=== PATIENT | female | born 1960 | race Caucasian/White ===

== ENCOUNTER 2022-06-09 20:19 | Emergency (ER) | payer OTHER, SELFPAY ==
--- NOTE | ~2022-06-09 | XR_ITS ---
EXAMINATION: XR CHEST CLINICAL INFORMATION: Chest pain COMPARISON: Chest x-ray 03/12/2019 TECHNIQUE: 2 views of the chest were obtained. FINDINGS: Lungs are clear. No pulmonary vascular congestion. There is no pleural effusion. The heart size is normal. The cardiac and mediastinal contours are normal.. There are multilevel degenerative changes of dorsal spine. XR/XR chest 2V IMPRESSION: Unremarkable examination.
--- NOTE | 2022-06-09 20:24 | ECG_ITS ---
Test Reason : SOB Blood Pressure : / mmHG Vent. Rate : 075 BPM Atrial Rate : 075 BPM P-R Int : 158 ms QRS Dur : 068 ms QT Int : 378 ms P-R-T Axes : 050 037 043 degrees QTc Int : 422 ms Normal sinus rhythm Normal ECG No previous ECGs available Referred By: Generic ED Physician Electronically Signed By:LOLA OTERO MD
[2022-06-09 20:32] VITALS: BP 157/82; PULSE 76; RESP 20; TEMP 36.6; O2SAT 95; BMI 42.9
--- NOTE | 2022-06-09 20:37 | ED_ITS ---
HPI - General Adult General Chief complaint: Dyspnea Stated complaint: sob,congested cough,dizziness Time Seen by Provider: 06/09/22 22:38 Related Data Allergies Allergy/AdvReac Type Severity Reaction Status Date / Time No Known Allergies Allergy Verified 06/09/22 20:34 [No Known Allergies*] [facility] Social History Social History Advance Directives: No Advance Directives Information Provided: Yes Physical Exam ED Vital Signs: Vital Signs - 24 hr 06/09/22 20:32 Temperature 97.8 F Pulse Rate 76 Respiratory Rate 20 Blood Pressure 157/82 H Pulse Oximetry 95 Oxygen Delivery Method Room Air BMI result Body Mass Index 42.9 Course Course Course Narrative: 61-year-old female with past medical history significant for COPD presents for evaluation of cough, shortness of breath and chest tightness. Exam she has diffuse expiratory wheeze and decreased air movement. Vital signs are however stable. Plan for labs, EKG, chest x-ray and COVID swab. Medical Decision Making Lab Data 06/09/22 20:44 06/09/22 20:44 Labs: Lab Results 06/09/22 06/09/22 06/09/22 Range/Units 20:44 20:44 20:44 WBC 10.5 (4.8-10.8) X10*3/uL RBC 5.01 (4.20-5.50) X10*6/uL Hgb 14.1 (12.0-16.0) g/dl Hct 43.9 (37.0-47.0) % MCV 87.6 (80.0-98.0) fL MCH 28.1 (27.0-33.0) pg MCHC 32.1 (31.0-35.0) g/dl RDW 14.6 (11.0-16.0) % Plt Count 289 (160-400) X10*3/uL MPV 9.4 (9.4-12.3) fL Immature Gran % (Auto) 0.6 H (0.0-0.4) % Neut % (Auto) 63.8 (45-73) % Lymph % (Auto) 23.7 (20-40) % [place] % (Auto) 7.9 (2-11) % Eos % (Auto) 3.3 (0-4) % Baso % (Auto) 0.7 (0-2) % Lymph # (Auto) 2.5 (1.2-4.9) X10*3/uL [place] # (Auto) 0.8 (0.1-1.2) X10*3/uL Eos # (Auto) 0.4 (0.0-0.4) X10*3/uL Baso # (Auto) 0.1 (0.0-0.2) X10*3/uL Abs Immat Gran (auto) 0.06 H (0.00-0.03) X10*3/uL Absolute Neuts (auto) 6.7 (2.0-8.3) x10*3/uL Absolute Nucleated RBC 0.000 (0.0-0.012) X10*3/uL Nucleated RBC % (auto) 0.0 (0.0-0.2) /100WBC Sodium 143 (135-145) mmol/L Potassium 4.7 (3.3-5.1) mmol/L Chloride 108 (96-108) mmol/L Carbon Dioxide 26 (22-29) mmol/L Anion Gap 14 (12-20) BUN 12 (9-16) mg/dL Creatinine 1.14 (0.5-1.4) mg/dL Estim Creat Clear Calc 65.5 Estimated GFR 49 Random Glucose 104 (60-115) mg/dL Calcium 9.0 (8.4-10.2) mg/dL Magnesium 2.0 (1.6-2.6) mg/dL Troponin I High Sens < 3.5 (<3.5-17.0) ng/L B-Natriuretic Peptide (<100) pg/mL COVID-19 (CASE) (Negative) COVID-19 Clin Com 06/09/22 06/09/22 Range/Units 20:44 20:44 WBC (4.8-10.8) X10*3/uL RBC (4.20-5.50) X10*6/uL Hgb (12.0-16.0) g/dl Hct (37.0-47.0) % MCV (80.0-98.0) fL MCH (27.0-33.0) pg MCHC (31.0-35.0) g/dl RDW (11.0-16.0) % Plt Count (160-400) X10*3/uL MPV (9.4-12.3) fL Immature Gran % (Auto) (0.0-0.4) % Neut % (Auto) (45-73) % Lymph % (Auto) (20-40) % [place] % (Auto) (2-11) % Eos % (Auto) (0-4) % Baso % (Auto) (0-2) % Lymph # (Auto) (1.2-4.9) X10*3/uL [place] # (Auto) (0.1-1.2) X10*3/uL Eos # (Auto) (0.0-0.4) X10*3/uL Baso # (Auto) (0.0-0.2) X10*3/uL Abs Immat Gran (auto) (0.00-0.03) X10*3/uL Absolute Neuts (auto) (2.0-8.3) x10*3/uL Absolute Nucleated RBC (0.0-0.012) X10*3/uL Nucleated RBC % (auto) (0.0-0.2) /100WBC Sodium (135-145) mmol/L Potassium (3.3-5.1) mmol/L Chloride (96-108) mmol/L Carbon Dioxide (22-29) mmol/L Anion Gap (12-20) BUN (9-16) mg/dL Creatinine (0.5-1.4) mg/dL Estim Creat Clear Calc Estimated GFR Random Glucose (60-115) mg/dL Calcium (8.4-10.2) mg/dL Magnesium (1.6-2.6) mg/dL Troponin I High Sens (<3.5-17.0) ng/L B-Natriuretic Peptide 16 (<100) pg/mL COVID-19 (CASE) Negative (Negative) COVID-19 Clin Com See Note
[2022-06-09 20:49] LABS: MANUAL DIFF FLAG NO
[2022-06-09 20:56] LABS: Basophils Absolute Auto 0.1 X10*3/uL (0.0-0.2); Basophils Percent Auto 0.7 % (0-2); Eosinophils Absolute Auto 0.4 X10*3/uL (0.0-0.4); Eosinophils Percent Auto 3.3 % (0-4); Hematocrit 43.9 % (37.0-47.0); Hemoglobin 14.1 g/dl (12.0-16.0); Imm Gran Abs Auto 0.06 X10*3/uL (0.00-0.03); Imm Gran Pct Auto 0.6 % (0.0-0.4); Lymphocytes Absolute Auto 2.5 X10*3/uL (1.2-4.9); Lymphocytes Percent Auto 23.7 % (20-40); Mean Corpuscular HGB Conc 32.1 g/dl (31.0-35.0); Mean Corpuscular Hemoglobin 28.1 pg (27.0-33.0); Mean Corpuscular Volume 87.6 fL (80.0-98.0); Mean Platelet Volume 9.4 fL (9.4-12.3); Monocytes Absolute Auto 0.8 X10*3/uL (0.1-1.2); Monocytes Percent Auto 7.9 % (2-11); Neutrophils Absolute Auto 6.7 x10*3/uL (2.0-8.3); Neutrophils Percent Auto 63.8 % (45-73); Platelet Count 289 X10*3/uL (160-400); Red Blood Count 5.01 X10*6/uL (4.20-5.50); Red Cell Distribution Width 14.6 % (11.0-16.0); White Blood Count 10.5 X10*3/uL (4.8-10.8)
[2022-06-09 21:07] LABS: COVID-19 Test Negative (Negative); IDNOW Serial# 08D9AD1C
[2022-06-09 21:13] LABS: Anion Gap 14 (12-20); Blood Urea Nitrogen 12 mg/dL (9-16); Carbon Dioxide 26 mmol/L (22-29); Chloride 108 mmol/L (96-108); Creatinine Clr Calc Pharmacy 65.5; Estimated Glomerular Filt Rate 49; Glucose Random 104 mg/dL (60-115); Potassium 4.7 mmol/L (3.3-5.1); Sodium 143 mmol/L (135-145)
[2022-06-09 21:17] LABS: B Type Natriuretic Peptide 16 pg/mL (<100)
[2022-06-09 21:25] LABS: Troponin-I High Sensitivity < 3.5 ng/L (<3.5-17.0)
--- NOTE | 2022-06-09 23:01 | ED_ITS ---
HPI - SOB/Dyspnea General Chief Complaint: Dyspnea Stated Complaint: sob,congested cough,dizziness Time Seen by Provider: 06/09/22 22:38 Source: patient Mode of arrival: ambulatory Limitations: no limitations History of Present Illness HPI Narrative: 61-year-old female came in for evaluation of SOB, congestion, productive cough with clear sputum. Patient is a former smoker with history of COPD/emphysema patient is not using supplemental oxygen. No chest pain, no fever, no chills, lower extremities swelling or tenderness. Symptoms started 3-4 days ago with sore throat that is improved now. Related Data Previous Rx's Medication Instructions Recorded albuterol sulfate 2.5 mg/3 mL 2.5 mg (3 mL) inhalation QID PRN 06/10/22 (0.083 %) solution for nebulization shortness of breath or wheezing #90 mL albuterol sulfate 90 mcg/actuation 2 puff inhalation Q6H PRN 06/10/22 aerosol inhaler shortness of breath or wheezing #8.5 grams azithromycin 250 mg tablet See Rx Instructions PO .COMPLEX #6 06/10/22 (Zithromax Z-Charles) tabs prednisone 20 mg tablet 20 mg PO BID #10 tabs 06/10/22 Allergies Allergy/AdvReac Type Severity Reaction Status Date / Time No Known Allergies Allergy Verified 06/09/22 20:34 [No Known Allergies*] Review of Systems Review of Systems: All other systems are reviewed and are negative Constitutional: Reports as per HPI and Reports no additional constitutional complaints Eyes: Reports as per HPI and Reports no additional eye complaints Reports system reviewed and no additional complaints, except as documented Cardiovascular: Reports as per HPI and Reports no additional cardiovascular complaints Respiratory: Reports as per HPI and Reports no additional respiratory complaints Gastrointestinal: Reports as per HPI and Reports no additional gastrointestinal complaints Genitourinary: Reports no additional female genitourinary complaints Musculoskeletal: Reports no additional musculoskeletal complaints Skin/Breast: Reports system reviewed and no additional complaints, except as docu Psychiatric: Reports no additional psychiatric complaints Endocrine: Reports no additional endocrine complaints Hematologic/Lymphatic: Reports no additional hematologic/lymphatic complaints Allergic/Immunologic: Reports no additional allergic/immunologic complaints Reports system reviewed and no additional complaints, except as documented and Reports Abnormal speech present PMF Social History Social History Advance Directives: No Advance Directives Information Provided: Yes Physical Exam Vital Signs: Vital Signs: Last Vital Signs Temp 97.8 F 06/09/22 20:32 Pulse 61 06/09/22 23:20 Resp 16 06/09/22 23:20 BP 180/82 H 06/09/22 23:20 Pulse Ox 94 06/09/22 23:20 O2 Del Method Room Air 06/09/22 20:32 BMI result Body Mass Index 42.9 Vital signs have been reviewed as appeared to be correct. Blood pressure normal. Heart rate normal. Respiration rate normal. Temperature normal. Oxygen saturation normal. Appearance: Alert. Oriented X3. No acute distress. Head: Normal external exam. Normocephalic. Atraumatic. No Patel signs noted. No raccoon eyes noted Eyes: PERRLA. EOMI. Conjunctiva and sclera normal. Eyelids normal. ENT: TM's Normal. Pharynx normal. Uvula midline. Moist mucous membranes. No trismus noted. No drooling noted. No muffled voice noted. Neck: Normal inspection. Neck supple. FROM. No adenopathy. Thyroid Normal. No meningeal signs. No neck mass noted. CVS: Normal heart rate and rhythm. Heart sound normal. No murmurs noted. Pulses normal throughout. Respiratory: No respiratory distress. Painless inspiration. Breath sounds normal. Diffuse mild expiratory wheezing with prolonged expiration. No accessory muscle usage noted or decreased air movement noted. Abdomen: Soft and nontender. Bowel sounds normal in all 4 quadrants. No distention noted. No organomegaly noted. No visible injury noted. Back: No CVA tenderness. Full range of motion noted. Skin: Skin warm and dry. Normal skin color. Normal skin turgor. No rashes/lesions/lacerations noted. Extremities: No lower extremity edema. Extremities exhibit normal range of motion. Extremities nontender. Neuro: Oriented X 3. Cranial nerve exam: II-XII are grossly intact No motor deficit. No sensory deficit. Reflexes normal. Course Course Course Narrative: 61-year-old female with acute exacerbation of COPD will start the patient on Z-P ak/prednisone/bronchodilator and follow-up with PCP. Medications Administered Generic Name Dose Route Start Last Admin Trade Name Freq PRN Reason Stop Dose Admin Magnesium Sulfate 2 gm in 50 mls @ 25 mls/hr 06/09/22 23:00 06/10/22 00:17 Magnesium Sulfate/H2o IV 06/10/22 00:59 Infused ONCE ONE Infusion Discontinued Medications Generic Name Dose Route Start Last Admin Trade Name Cony PRN Reason Stop Dose Admin Albuterol Sulfate 10 mg 06/09/22 23:00 06/09/22 23:15 Albuterol Sulfate (0.083%) 2.5 Mg/3 Ml Vial.Neb INHALE 06/09/22 23:01 10 mg ONCE ONE Administration Azithromycin 500 mg 06/09/22 23:00 06/09/22 23:14 Azithromycin 500 Mg Tablet PO 06/09/22 23:01 500 mg ONCE ONE Administration Methylprednisolone Sodium Succinate 125 mg 06/09/22 23:00 06/09/22 23:14 Methylprednisolone Sod Succ 125 Mg/2 Ml Vial IVPUSH 06/09/22 23:01 125 mg ONCE ONE Administration Medical Decision Making Differential Diagnosis Differential Diagnoses: The differential diagnosis associated with the presentation includes (COVID-19 infection, pneumonia, COPD exacerbation, pneumothorax.) Lab Data MDM Lab Attestation statement: I reviewed the patient's lab results. 06/09/22 20:44 06/09/22 20:44 Labs: Lab Results 06/09/22 06/09/22 06/09/22 Range/Units 20:44 20:44 20:44 WBC 10.5 (4.8-10.8) X10*3/uL RBC 5.01 (4.20-5.50) X10*6/uL Hgb 14.1 (12.0-16.0) g/dl Hct 43.9 (37.0-47.0) % MCV 87.6 (80.0-98.0) fL MCH 28.1 (27.0-33.0) pg MCHC 32.1 (31.0-35.0) g/dl RDW 14.6 (11.0-16.0) % Plt Count 289 (160-400) X10*3/uL MPV 9.4 (9.4-12.3) fL Immature Gran % (Auto) 0.6 H (0.0-0.4) % Neut % (Auto) 63.8 (45-73) % Lymph % (Auto) 23.7 (20-40) % [place] % (Auto) 7.9 (2-11) % Eos % (Auto) 3.3 (0-4) % Baso % (Auto) 0.7 (0-2) % Lymph # (Auto) 2.5 (1.2-4.9) X10*3/uL [place] # (Auto) 0.8 (0.1-1.2) X10*3/uL Eos # (Auto) 0.4 (0.0-0.4) X10*3/uL Baso # (Auto) 0.1 (0.0-0.2) X10*3/uL Abs Immat Gran (auto) 0.06 H (0.00-0.03) X10*3/uL Absolute Neuts (auto) 6.7 (2.0-8.3) x10*3/uL Absolute Nucleated RBC 0.000 (0.0-0.012) X10*3/uL Nucleated RBC % (auto) 0.0 (0.0-0.2) /100WBC Sodium 143 (135-145) mmol/L Potassium 4.7 (3.3-5.1) mmol/L Chloride 108 (96-108) mmol/L Carbon Dioxide 26 (22-29) mmol/L Anion Gap 14 (12-20) BUN 12 (9-16) mg/dL Creatinine 1.14 (0.5-1.4) mg/dL Estim Creat Clear Calc 65.5 Estimated GFR 49 Random Glucose 104 (60-115) mg/dL Calcium 9.0 (8.4-10.2) mg/dL Magnesium 2.0 (1.6-2.6) mg/dL Troponin I High Sens < 3.5 (<3.5-17.0) ng/L B-Natriuretic Peptide (<100) pg/mL COVID-19 (CASE) (Negative) COVID-19 Clin Com 06/09/22 06/09/22 Range/Units 20:44 20:44 WBC (4.8-10.8) X10*3/uL RBC (4.20-5.50) X10*6/uL Hgb (12.0-16.0) g/dl Hct (37.0-47.0) % MCV (80.0-98.0) fL MCH (27.0-33.0) pg MCHC (31.0-35.0) g/dl RDW (11.0-16.0) % Plt Count (160-400) X10*3/uL MPV (9.4-12.3) fL Immature Gran % (Auto) (0.0-0.4) % Neut % (Auto) (45-73) % Lymph % (Auto) (20-40) % [place] % (Auto) (2-11) % Eos % (Auto) (0-4) % Baso % (Auto) (0-2) % Lymph # (Auto) (1.2-4.9) X10*3/uL [place] # (Auto) (0.1-1.2) X10*3/uL Eos # (Auto) (0.0-0.4) X10*3/uL Baso # (Auto) (0.0-0.2) X10*3/uL Abs Immat Gran (auto) (0.00-0.03) X10*3/uL Absolute Neuts (auto) (2.0-8.3) x10*3/uL Absolute Nucleated RBC (0.0-0.012) X10*3/uL Nucleated RBC % (auto) (0.0-0.2) /100WBC Sodium (135-145) mmol/L Potassium (3.3-5.1) mmol/L Chloride (96-108) mmol/L Carbon Dioxide (22-29) mmol/L Anion Gap (12-20) BUN (9-16) mg/dL Creatinine (0.5-1.4) mg/dL Estim Creat Clear Calc Estimated GFR Random Glucose (60-115) mg/dL Calcium (8.4-10.2) mg/dL Magnesium (1.6-2.6) mg/dL Troponin I High Sens (<3.5-17.0) ng/L B-Natriuretic Peptide 16 (<100) pg/mL COVID-19 (CASE) Negative (Negative) COVID-19 Clin Com See Note Independent Interpretation I performed an independent interpretation of an: Plain X-Ray Radiology Impression Discussion of test interpretation with radiology: I have reviewed the radiologist's reading. Discharge Plan Discharge Clinical Impression: Acute exacerbation of chronic obstructive airways disease, Bronchitis Patient Disposition: Home, Self-Care Instructions: COPD (Chronic Obstructive Pulmonary Disease) (ED) Prescriptions: New albuterol sulfate 90 mcg/actuation HFA aerosol inhaler 2 puff inhalation Q6H PRN (Reason: shortness of breath or wheezing) Qty: 8.5 0RF albuterol sulfate 2.5 mg /3 mL (0.083 %) solution for nebulization 2.5 mg inhalation QID PRN (Reason: shortness of breath or wheezing) Qty: 90 0RF prednisone 20 mg tablet 20 mg PO BID Qty: 10 0RF azithromycin [Zithromax Z-Charles] 250 mg tablet See Rx Instructions .ROUTE .COMPLEX Qty: 6 0RF Rx Instructions: For 250 mg dose pack: take 500 mg today (day 1), then 250 mg for 4 days (days 2-5) Referrals: Edith Rizvi MD [Primary Care Provider] -
[2022-06-09] MEDS: Azithromycin 500 MG TABLET PO (23:14)
[2022-06-09] MEDS: methylPREDNISolone Sod Succ 125 MG/2 ML VIAL IVPUSH (23:14)
[2022-06-09] MEDS: Magnesium Sulfate/H2O 2 GM/50 ML PIGGYBACK IV (23:14)
[2022-06-09] MEDS: Albuterol Sulfate (0.083%) 2.5 MG/3 ML VIAL.NEB 10 MG INHALE (23:15)
[2022-06-09 23:20] VITALS: BP 180/82; PULSE 61; PULSE 67; RESP 16; RESP 22; O2SAT 94; O2SAT 95
--- NOTE | 2022-06-10 01:03 | PC.NURSE ---
pt assessed and discharged by provider, this rn reviewed discharge instructions with pt. pt verbalized understanding. No sign of distress at discharge.
== END 2022-06-10 01:04 | disposition home or self-care (01) ==
PROVIDERS: Physician Assistant; Emergency Provider Emergency Medicine; PCP Internal Medicine
DX: J44.1 Chronic obstructive pulmonary disease with (acute) exacerbation (principal); J20.9 Acute bronchitis, unspecified; J44.0 Chronic obstructive pulmonary disease with (acute) lower respiratory infection; Z20.822 Contact with and (suspected) exposure to COVID-19; R06.02 Shortness of breath; Z87.891 Personal history of nicotine dependence
CPT/HCPCS: 36415; 71046; 80048; 83735; 83880; 84484; 85025; 87635; 93005; 94640; 96365; 96375; 99284; J2930; J3475

== ENCOUNTER 2022-12-13 19:55 | Emergency (ER) | payer OTHER, SELFPAY ==
--- NOTE | ~2022-12-13 | XR_ITS ---
EXAMINATION: XR CHEST CLINICAL INFORMATION: Chest pain. Shortness of breath. COMPARISON: Chest x-ray June 09, 2022 TECHNIQUE: Frontal view of the chest was obtained. FINDINGS: Lungs are clear. No pulmonary vascular congestion. There is no pleural effusion. The heart size is normal. The cardiac and mediastinal contours are normal. There are multilevel degenerative changes of dorsal spine. XR/XR chest 1V IMPRESSION: Unremarkable examination.
[2022-12-13 19:57] VITALS: BP 129/90; PULSE 75; RESP 19; TEMP 36; O2SAT 96; BMI 42.5
--- NOTE | 2022-12-13 19:58 | ECG_ITS ---
Test Reason : CHEST PAIN Blood Pressure : / mmHG Vent. Rate : 075 BPM Atrial Rate : 075 BPM P-R Int : 146 ms QRS Dur : 068 ms QT Int : 368 ms P-R-T Axes : 059 029 045 degrees QTc Int : 410 ms Normal sinus rhythm Normal ECG When compared with ECG of 09-JUN-2022 20:27, No significant change was found Referred By: Radha Landers Electronically Signed By:CAMMY DEWITT
--- NOTE | 2022-12-13 19:59 | ED.GENADULT ---
HPI - General Adult General Chief complaint: Chest Pain Stated complaint: Chest pain, shortness of breath Time Seen by Provider: 12/13/22 22:37 Related Data Previous Rx's Medication Instructions Recorded albuterol sulfate 2.5 mg/3 mL 2.5 mg (3 mL) inhalation QID PRN 06/10/22 (0.083 %) solution for nebulization shortness of breath or wheezing #90 mL albuterol sulfate 90 mcg/actuation 2 puff inhalation Q6H PRN 06/10/22 aerosol inhaler shortness of breath or wheezing #8.5 grams azithromycin 250 mg tablet See Rx Instructions PO .COMPLEX #6 06/10/22 (Zithromax Z-Charles) tabs prednisone 20 mg tablet 20 mg PO BID #10 tabs 06/10/22 Allergies Allergy/AdvReac Type Severity Reaction Status Date / Time No Known Allergies Allergy Verified 06/09/22 20:34 [No Known Allergies*] PMFSH Social History Social History Advance Directives: No Advance Directives Information Provided: No Physical Exam ED Vital Signs: Vital Signs - 24 hr 12/13/22 19:57 12/13/22 22:03 Temperature 96.8 F 97.8 F Pulse Rate 75 62 Respiratory Rate 19 14 Blood Pressure 129/90 H 144/69 H Pulse Oximetry 96 97 Oxygen Delivery Method Room Air Room Air BMI result Body Mass Index 42.5 Course Course Course Narrative: This is an RME: Additional HPI, ROS, PE not included below will be deferred to primary provider. 62 yo f hx asthma, copd presents w/ cp sob X 4 days also complaining of b/l lower extremity discomfort. Hx of RUE blood clot not on thinners. Plan- labs, ekg Medical Decision Making Lab Data 12/13/22 20:10 12/13/22 20:10 Labs: Lab Results 12/13/22 Range/Units 20:10 WBC 12.1 H (4.8-10.8) X10*3/uL RBC 5.12 (4.20-5.50) X10*6/uL Hgb 14.5 (12.0-16.0) g/dl Hct 43.1 (37.0-47.0) % MCV 84.2 (80.0-98.0) fL MCH 28.3 (27.0-33.0) pg MCHC 33.6 (31.0-35.0) g/dl RDW 14.3 (11.0-16.0) % Plt Count 296 (160-400) X10*3/uL MPV 9.4 (9.4-12.3) fL Immature Gran % (Auto) 0.5 H (0.0-0.4) % Neut % (Auto) 60.9 (45-73) % Lymph % (Auto) 27.6 (20-40) % [place] % (Auto) 8.0 (2-11) % Eos % (Auto) 2.5 (0-4) % Baso % (Auto) 0.5 (0-2) % Lymph # (Auto) 3.4 (1.2-4.9) X10*3/uL [place] # (Auto) 1.0 (0.1-1.2) X10*3/uL Eos # (Auto) 0.3 (0.0-0.4) X10*3/uL Baso # (Auto) 0.1 (0.0-0.2) X10*3/uL Abs Immat Gran (auto) 0.06 H (0.00-0.03) X10*3/uL Absolute Neuts (auto) 7.4 (2.0-8.3) x10*3/uL Absolute Nucleated RBC 0.000 (0.0-0.012) X10*3/uL Nucleated RBC % (auto) 0.0 (0.0-0.2) /100WBC D-Dimer High Sensitivty < 150 NG/ML Sodium 141 (135-145) mmol/L Potassium 4.2 (3.3-5.1) mmol/L Chloride 107 (96-108) mmol/L Carbon Dioxide 26 (22-29) mmol/L Anion Gap 12 (12-20) BUN 13 (9-16) mg/dL Creatinine 1.03 (0.5-1.4) mg/dL Estim Creat Clear Calc 71.2 Estimated GFR 55 Random Glucose 104 (60-115) mg/dL Calcium 9.6 D (8.4-10.2) mg/dL Magnesium 2.1 (1.6-2.6) mg/dL Total Bilirubin 0.2 (0.0-1.0) mg/dL AST 14 (5-31) U/L ALT 13 (0-31) U/L Alkaline Phosphatase 83 (39-117) U/L Troponin I High Sens < 2.7 (<3.5-17.0) ng/L B-Natriuretic Peptide 15 (<100) pg/mL Total Protein 6.9 (6.5-8.0) g/dL Albumin 4.3 (3.5-5.0) g/dL COVID-19 (CASE) Negative (Negative) COVID-19 Clin Com See Note Discharge Plan Discharge Prescriptions: No Action albuterol sulfate 90 mcg/actuation HFA aerosol inhaler 2 puff inhalation Q6H PRN (Reason: shortness of breath or wheezing) Qty: 8.5 0RF albuterol sulfate 2.5 mg /3 mL (0.083 %) solution for nebulization 2.5 mg inhalation QID PRN (Reason: shortness of breath or wheezing) Qty: 90 0RF prednisone 20 mg tablet 20 mg PO BID Qty: 10 0RF azithromycin [Zithromax Z-Charles] 250 mg tablet See Rx Instructions .ROUTE .COMPLEX Qty: 6 0RF Rx Instructions: For 250 mg dose pack: take 500 mg today (day 1), then 250 mg for 4 days (days 2-5)
[2022-12-13 20:17] LABS: MANUAL DIFF FLAG NO
[2022-12-13 20:19] LABS: Basophils Absolute Auto 0.1 X10*3/uL (0.0-0.2); Basophils Percent Auto 0.5 % (0-2); Eosinophils Absolute Auto 0.3 X10*3/uL (0.0-0.4); Eosinophils Percent Auto 2.5 % (0-4); Hematocrit 43.1 % (37.0-47.0); Hemoglobin 14.5 g/dl (12.0-16.0); Imm Gran Abs Auto 0.06 X10*3/uL (0.00-0.03); Imm Gran Pct Auto 0.5 % (0.0-0.4); Lymphocytes Absolute Auto 3.4 X10*3/uL (1.2-4.9); Lymphocytes Percent Auto 27.6 % (20-40); Mean Corpuscular HGB Conc 33.6 g/dl (31.0-35.0); Mean Corpuscular Hemoglobin 28.3 pg (27.0-33.0); Mean Corpuscular Volume 84.2 fL (80.0-98.0); Mean Platelet Volume 9.4 fL (9.4-12.3); Neutrophils Absolute Auto 7.4 x10*3/uL (2.0-8.3); Neutrophils Percent Auto 60.9 % (45-73); Platelet Count 296 X10*3/uL (160-400); Red Blood Count 5.12 X10*6/uL (4.20-5.50); Red Cell Distribution Width 14.3 % (11.0-16.0); White Blood Count 12.1 X10*3/uL (4.8-10.8)
[2022-12-13 20:29] LABS: COVID-19 Test Negative (Negative); IDNOW Serial# BCCEAD1C
[2022-12-13 20:32] LABS: Alanine Aminotransferase 13 U/L (0-31); Albumin Level 4.3 g/dL (3.5-5.0); Alkaline Phosphatase 83 U/L (39-117); Anion Gap 12 (12-20); Aspartate Amino Transferase 14 U/L (5-31); Bilirubin Total 0.2 mg/dL (0.0-1.0); Blood Urea Nitrogen 13 mg/dL (9-16); Calcium 9.6 mg/dL (8.4-10.2); Carbon Dioxide 26 mmol/L (22-29); Chloride 107 mmol/L (96-108); Creatinine Clr Calc Pharmacy 71.2; Estimated Glomerular Filt Rate 55; Glucose Random 104 mg/dL (60-115); Magnesium 2.1 mg/dL (1.6-2.6); Potassium 4.2 mmol/L (3.3-5.1); Sodium 141 mmol/L (135-145); Total Protein 6.9 g/dL (6.5-8.0)
[2022-12-13 20:38] LABS: B Type Natriuretic Peptide 15 pg/mL (<100)
[2022-12-13 20:39] LABS: D Dimer High Sensitivity < 150 NG/ML; Troponin-I High Sensitivity < 2.7 ng/L (<3.5-17.0)
[2022-12-13 22:03] VITALS: BP 144/69; PULSE 62; PULSE 64; RESP 14; TEMP 36.6; O2SAT 97
--- NOTE | 2022-12-13 22:39 | ED_ITS ---
HPI - Chest Pain General Chief Complaint: Chest Pain Stated Complaint: Chest pain, shortness of breath Time Seen by Provider: 12/13/22 22:37 Source: patient Mode of arrival: ambulatory Limitations: no limitations History of Present Illness HPI narrative: Patient's history of sleep apnea, anxiety, COPD comes here for like pain last 4 days having chest pain also for last few days increased anxiety poor sleep no use of cholesterol medication no alcohol use no paresthesia patient feels very anxious Related Data Previous Rx's Medication Instructions Recorded albuterol sulfate 2.5 mg/3 mL 2.5 mg (3 mL) inhalation QID PRN 06/10/22 (0.083 %) solution for nebulization shortness of breath or wheezing #90 mL albuterol sulfate 90 mcg/actuation 2 puff inhalation Q6H PRN 06/10/22 aerosol inhaler shortness of breath or wheezing #8.5 grams azithromycin 250 mg tablet See Rx Instructions PO .COMPLEX #6 06/10/22 (Zithromax Z-Charles) tabs prednisone 20 mg tablet 20 mg PO BID #10 tabs 06/10/22 lorazepam 1 mg tablet (Ativan) 1 mg PO BEDTIME PRN sleep #10 tabs 12/13/22 tramadol 50 mg tablet 50 mg PO Q6H PRN pain #20 tabs 12/13/22 Allergies Allergy/AdvReac Type Severity Reaction Status Date / Time No Known Allergies Allergy Verified 06/09/22 20:34 [No Known Allergies*] Review of Systems 2 Review of Systems: Yes all other systems are reviewed and are negative PMFSH Past Medical History Medical History Renal cell carcinoma Obstructive sleep apnea COPD (chronic obstructive pulmonary disease) Anxiety Surgical History History of nephrectomy Social History Social History Advance Directives: No Advance Directives Information Provided: No Physical Exam 2 Vital Signs: Vital Signs: Last Vital Signs Temp 98.0 F 12/13/22 23:39 Pulse 61 12/13/22 23:39 Resp 14 12/13/22 23:39 BP 209/71 H 12/13/22 23:39 Pulse Ox 97 12/13/22 23:39 O2 Del Method Room Air 12/13/22 23:39 BMI result Body Mass Index 42.5 Appearance: Alert. Oriented X3. No acute distress. Eyes: No pallor or icterus ENT: Pharynx normal. Oral Mucosa moist Neck: Normal inspection. Neck supple. CVS: Normal heart rate and rhythm. Pulses normal. Respiratory: No respiratory distress. Equal air entry bilateral, no wheezing/rales/rhonchi Abdomen: Soft and nontender. Bowel sounds are present, no mass palpable, no CVA tenderness Skin: Skin warm and dry. Normal skin color. Normal skin turgor. Extremities: No lower extremity edema. No calf tenderness neurovascular intact Neuro: Oriented X 3. No motor deficit. No sensory deficit.No cerebellar signs , cranial nerves II-XII intact Medications Administered Discontinued Medications Generic Name Dose Route Start Last Admin Trade Name Freq PRN Reason Stop Dose Admin Oxycodone HCl 10 mg 12/13/22 23:11 12/13/22 23:21 Oxycodone Hcl Immed Release 5 Mg Tablet PO 12/13/22 23:12 10 mg ONCE ONE Administration Medical Decision Making Medical Decision Making [facility] Narrative: Patient atypical chest pain and leg pain clinically seems to be and anxious possible she has restless leg syndrome but no history in the past discharge patient home on tramadol and Ativan advised to follow with PCP Differential Diagnosis Differential Diagnoses: The differential diagnosis associated with the presentation includes Rhabdomyolysis/DVT/muscular pain/anxiety/atypical chest pain/ACS Lab Data [facility] Lab Attestation statement: I reviewed the patient's lab results. 12/13/22 20:10 12/13/22 20:10 Labs: Lab Results 12/13/22 Range/Units 20:10 WBC 12.1 H (4.8-10.8) X10*3/uL RBC 5.12 (4.20-5.50) X10*6/uL Hgb 14.5 (12.0-16.0) g/dl Hct 43.1 (37.0-47.0) % MCV 84.2 (80.0-98.0) fL MCH 28.3 (27.0-33.0) pg MCHC 33.6 (31.0-35.0) g/dl RDW 14.3 (11.0-16.0) % Plt Count 296 (160-400) X10*3/uL MPV 9.4 (9.4-12.3) fL Immature Gran % (Auto) 0.5 H (0.0-0.4) % Neut % (Auto) 60.9 (45-73) % Lymph % (Auto) 27.6 (20-40) % [place] % (Auto) 8.0 (2-11) % Eos % (Auto) 2.5 (0-4) % Baso % (Auto) 0.5 (0-2) % Lymph # (Auto) 3.4 (1.2-4.9) X10*3/uL [place] # (Auto) 1.0 (0.1-1.2) X10*3/uL Eos # (Auto) 0.3 (0.0-0.4) X10*3/uL Baso # (Auto) 0.1 (0.0-0.2) X10*3/uL Abs Immat Gran (auto) 0.06 H (0.00-0.03) X10*3/uL Absolute Neuts (auto) 7.4 (2.0-8.3) x10*3/uL Absolute Nucleated RBC 0.000 (0.0-0.012) X10*3/uL Nucleated RBC % (auto) 0.0 (0.0-0.2) /100WBC D-Dimer High Sensitivty < 150 NG/ML Sodium 141 (135-145) mmol/L Potassium 4.2 (3.3-5.1) mmol/L Chloride 107 (96-108) mmol/L Carbon Dioxide 26 (22-29) mmol/L Anion Gap 12 (12-20) BUN 13 (9-16) mg/dL Creatinine 1.03 (0.5-1.4) mg/dL Estim Creat Clear Calc 71.2 Estimated GFR 55 Random Glucose 104 (60-115) mg/dL Calcium 9.6 D (8.4-10.2) mg/dL Magnesium 2.1 (1.6-2.6) mg/dL Total Bilirubin 0.2 (0.0-1.0) mg/dL AST 14 (5-31) U/L ALT 13 (0-31) U/L Alkaline Phosphatase 83 (39-117) U/L Total Creatine Kinase 115 (26-140) U/L Troponin I High Sens < 2.7 (<3.5-17.0) ng/L B-Natriuretic Peptide 15 (<100) pg/mL Total Protein 6.9 (6.5-8.0) g/dL Albumin 4.3 (3.5-5.0) g/dL COVID-19 (CASE) Negative (Negative) COVID-19 Clin Com See Note Discharge Plan Discharge Clinical Impression: Musculoskeletal leg pain, Anxiety, Chest pain Patient Disposition: Home, Self-Care Instructions: Chest Pain (ED), Generalized Anxiety Disorder (ED), Leg Pain (ED) Additional Instructions: Drink plenty of fluids Pain medication as prescribed for leg cramps Ativan for severe anxiety/sleep Follow-up with PCP Prescriptions: New lorazepam [Ativan] 1 mg tablet 1 mg PO BEDTIME PRN (Reason: sleep) Qty: 10 0RF tramadol 50 mg tablet 50 mg PO Q6H PRN (Reason: pain) Qty: 20 0RF No Action albuterol sulfate 90 mcg/actuation HFA aerosol inhaler 2 puff inhalation Q6H PRN (Reason: shortness of breath or wheezing) Qty: 8.5 0RF albuterol sulfate 2.5 mg /3 mL (0.083 %) solution for nebulization 2.5 mg inhalation QID PRN (Reason: shortness of breath or wheezing) Qty: 90 0RF prednisone 20 mg tablet 20 mg PO BID Qty: 10 0RF azithromycin [Zithromax Z-Charles] 250 mg tablet See Rx Instructions .ROUTE .COMPLEX Qty: 6 0RF Rx Instructions: For 250 mg dose pack: take 500 mg today (day 1), then 250 mg for 4 days (days 2-5) Interventions: ED Discharge Assessment Last Done: 12/13/22 23:54
[2022-12-13] MEDS: oxyCODONE HCl Immed Release 5 MG TABLET 10 MG PO (23:21)
[2022-12-13 23:39] VITALS: BP 209/71; PULSE 61; RESP 14; TEMP 36.7; O2SAT 97
== END 2022-12-14 00:04 | disposition home or self-care (01) ==
PROVIDERS: Physician Assistant; Emergency Provider Internal Medicine; PCP Internal Medicine
DX: R07.89 Other chest pain (principal); R06.02 Shortness of breath; F41.9 Anxiety disorder, unspecified; M79.605 Pain in left leg; M79.604 Pain in right leg; Z20.822 Contact with and (suspected) exposure to COVID-19; Z20.828 Contact with and (suspected) exposure to other viral communicable diseases; Z79.899 Other long term (current) drug therapy
CPT/HCPCS: 71045; 80053; 82550; 83735; 83880; 84484; 85025; 85379; 87635; 93005; 99283; 99285

== ENCOUNTER 2024-05-19 19:39 | Emergency (ER) | payer OTHER, SELFPAY ==
[2024-05-19 19:53] VITALS: BP 156/84; PULSE 84; RESP 18; TEMP 36.5; O2SAT 97; BMI 41.2
--- NOTE | 2024-05-19 19:58 | ED_ITS ---
HPI - General Adult General Chief complaint: Skin/Abscess/Foreign Body Stated complaint: body rash/was on steriods finished & rash is back Time Seen by Provider: 05/19/24 22:38 Source: patient, RN notes reviewed and old records reviewed Mode of arrival: ambulatory Limitations: no limitations History of Present Illness ED Provider: Jake DORSEY narrative: 63-year-old female past medical history significant for renal cell carcinoma status post nephrectomy presents for evaluation of an itchy rash. Says she developed a red, itchy rash to her entire body most of the torso, arms and legs about 2 weeks ago. She went to urgent Care was given a course of prednisone taper which she reports resolved her symptoms. When she stopped the prednisone taper the symptoms returned. She does not have any known allergies. She denies any new soaps, lotions, detergents. Denies any new medications denies any fevers, chills, cough. The symptoms do not involve her mouth, palms or soles Related Data Previous Rx's ?Medication ?Instructions ?Recorded albuterol sulfate 2.5 mg/3 mL 2.5 mg (3 mL) inhalation QID PRN 06/10/22 (0.083 %) solution for nebulization shortness of breath or wheezing #90 mL albuterol sulfate 90 mcg/actuation 2 puff inhalation Q6H PRN 06/10/22 aerosol inhaler shortness of breath or wheezing #8.5 grams azithromycin 250 mg tablet See Rx Instructions PO .COMPLEX #6 06/10/22 (Zithromax Z-Charles) tabs prednisone 20 mg tablet 20 mg PO BID #10 tabs 06/10/22 lorazepam 1 mg tablet (Ativan) 1 mg PO BEDTIME PRN sleep #10 tabs 12/13/22 tramadol 50 mg tablet 50 mg PO Q6H PRN pain #20 tabs 12/13/22 hydroxyzine HCl 25 mg tablet 25 mg PO QID PRN itching #30 tabs 05/19/24 prednisone 10 mg tablet 10 mg PO DAILY #30 tabs 05/19/24 Allergies Allergy/AdvReac Type Severity Reaction Status Date / Time No Known Allergies Allergy Verified 05/19/24 19:54 [No Known Allergies*] Review of Systems Constitutional: Constitutional: Denies body ache(s), Denies chills and Denies headache(s) ENT: Denies vertigo, Denies dizziness and Denies headache(s) Cardiovascular: Cardiovascular: Denies chest pain and Denies dyspnea Respiratory: Respiratory: Denies cough and Denies dyspnea Gastrointestinal: Gastrointestinal: Denies abdominal pain, Denies nausea and Denies vomiting Musculoskeletal: Musculoskeletal: Denies back pain Integumentary/Breasts: Skin/Breast: Reports pruritus, Reports erythema and Reports rash Neurologic: Denies vertigo, Denies dizziness and Denies headache(s) Psychiatric: Psychiatric: Denies anxiety PMFSH Past Medical History Medical History (Reviewed 12/14/22 @ 00: by Donnell Howe MD) Renal cell carcinoma Obstructive sleep apnea COPD (chronic obstructive pulmonary disease) Anxiety Surgical History (Reviewed 12/14/22 @ : by Donnell Howe MD) History of nephrectomy Social History Social History (Reviewed 12/14/22 @ : by Donnell Howe MD) Smoked in Last 30 Days: No Use of substances other than those prescribed or required for medical reasons: No Advance Directives: No Advance Directives Information Provided: Yes Do you have a plan to hurt others: No Plan Patient : No Physical Exam ED Vital Signs: Vital Signs - 24 hr 05/19/24 22:41 05/19/24 23:33 Temperature 97.5 F 98.6 F Pulse Rate 83 87 Respiratory Rate 20 18 Blood Pressure 195/83 H 150/92 H Pulse Oximetry 98 98 Oxygen Delivery Method Room Air Room Air BMI result Body Mass Index 41.2 Const General: healthy appearing, comfortable, no acute distress, alert and awake Nutritional Appearance: well nourished Orientation/consciousness: patient oriented x3 HENMT Head: Yes normocephalic and Yes atraumatic Eyes Eyelids: Yes eyelids normal Conjunctivae: conjunctivae normal Sclerae: sclerae normal Corneas: corneas normal Pupils: Equal, round and reactive pupils present EOM: EOMs intact bilaterally Neck Neck: Yes full ROM Resp Effort & Inspection: normal respiratory effort, able to speak in complete sentences and not labored Cardio Rate: regular rate Rhythm: regular rhythm Skin Other: diffuse erythematous macular rash with excoriations. There was no involvement of the palms or soles, or buccal mucosa General skin exam: elasticity normal Rashes: rash noted and rashes noted Neuro General: patient oriented x3 Cranial nerves: Yes Equal, round and reactive pupils present and Yes Bilaterally intact EOM present Cognition (Neuro): normal cognition Extrem Other: Moving all extremities well without any obvious deformities Course Course Course Narrative: RME: Patient states 2 weeks of intermittent allergic reaction. Patient states this episode has been occurring for the past 4 days. Patient is unknown any new allergies. Benadryl Pepcid steroids ordered. No signs of anaphylaxis. Medications Administered Discontinued Medications Generic Name Dose Route Start Last Admin Trade Name Freq PRN Reason Stop Dose Admin Diphenhydramine HCl 50 mg 05/19/24 19:57 05/19/24 22:40 Diphenhydramine Hcl 25 Mg Capsule PO 05/19/24 19:58 50 mg ONCE ONE Administration Famotidine 20 mg 05/19/24 19:57 05/19/24 22:40 Famotidine 20 Mg Tablet PO 05/19/24 19:58 20 mg ONCE ONE Administration Prednisone 60 mg 05/19/24 19:57 05/19/24 22:40 Prednisone 20 Mg Tablet PO 05/19/24 19:58 60 mg ONCE ONE Administration Medical Decision Making Medical Decision Making MDM Narrative: 63-year-old female presents for evaluation of an itchy rash to her entire body. She was previously treated with prednisone with good relief for her symptoms. There are no findings to suggest this is an infectious rash. There was no mucosal involvement, no ulcerations, no skin sloughing off. This is most consistent with a mild acute dermatitis. There was no evidence of angioedema or anaphylaxis. we will treat the patient with an additional course of prednisone and she will be referred to her primary doctor and likely referral to a ecommerce marketing specialist Differential Diagnosis Differential Diagnoses: The differential diagnosis associated with the present ation includes acute dermatitis Urticaria Macular rash Stephen Leno syndrome less likely Cellulitis Discharge Plan Discharge Clinical Impression: Acute dermatitis Patient Disposition: Home, Self-Care Instructions: Dermatitis (ED) Additional Instructions: Your symptoms are consistent with an inflammatory rash which could not have an allergic component. Take prednisone taper as prescribed. You may use hydroxyzine as needed for itching and rash I do recommend that you take a daily [id number] allergy medication such as Zyrtec or Claritin it is important that you follow-up with your primary doctor in you may benefit from a referral to Dermatology Prescriptions: New hydroxyzine HCl 25 mg tablet 25 mg PO QID PRN (Reason: itching) Qty: 30 0RF prednisone 10 mg tablet 10 mg PO DAILY Qty: 30 0RF Rx Instructions: 4 tabs daily x3 days 3 tabs daily x3 days 2 tabs daily x3 days 1 tabs daily x3 days No Action albuterol sulfate 90 mcg/actuation HFA aerosol inhaler 2 puff inhalation Q6H PRN (Reason: shortness of breath or wheezing) Qty: 8.5 0RF albuterol sulfate 2.5 mg /3 mL (0.083 %) solution for nebulization 2.5 mg inhalation QID PRN (Reason: shortness of breath or wheezing) Qty: 90 0RF prednisone 20 mg tablet 20 mg PO BID Qty: 10 0RF azithromycin [Zithromax Z-Charles] 250 mg tablet See Rx Instructions .ROUTE .COMPLEX Qty: 6 0RF Rx Instructions: For 250 mg dose pack: take 500 mg today (day 1), then 250 mg for 4 days (days 2-5) lorazepam [Ativan] 1 mg tablet 1 mg PO BEDTIME PRN (Reason: sleep) Qty: 10 0RF tramadol 50 mg tablet 50 mg PO Q6H PRN (Reason: pain) Qty: 20 0RF Interventions: ED Discharge Assessment Last Done: 05/19/24 23:33 Discharge Date/Time: 05/19/24 23:35 Print Language: Thai
[2024-05-19] MEDS: diphenhydrAMINE HCL 25 MG CAPSULE 50 MG PO (22:40)
[2024-05-19] MEDS: predniSONE 20 MG TABLET 60 MG PO (22:40)
[2024-05-19] MEDS: Famotidine 20 MG TABLET PO (22:40)
[2024-05-19 22:41] VITALS: BP 195/83; PULSE 83; RESP 20; TEMP 36.4; O2SAT 98
--- OUTSIDE RECORDS SUMMARY | 2024-05-19 22:41 | XMS_ITS | Clinical Summary ---
Author Organization [facility] Address [address] [place] [phone] Phone Care Team Providers Care Fatback Trimmer Name Role Phone Edith Loving MD Primary Care Prov ider Allergies No known active allergies Medications omeprazole (PriLOSEC) [address] capsule Take 1 capsule (20 mg total) by mouth 1 (one) time each day. 02/03/20 Active albuterol 2.5 mg /3 mL (0.083 %) nebulizer solution INHALE ONE VIAL BY MOUTH VIA NEBULIZER EVERY 6 HOURS NEEDED FOR WHEEZING, COUGH, OR FOR SHORTNESS OF BREATH 03/06/20 23 Active azelastine (ASTELIN) 137 mcg (0.1 %) nasal spray Administer 2 sprays into affected nostril(s) 2 (two) times a day. 02/01/20 23 Active loratadine (CLARITIN) 10 mg tablet Take 1 tablet (10 mg total) by mouth 1 (one) time each day. For 360 days 02/01/20 23 Active citalopram (CeleXA) 20 mg tablet Take 1.5 tablets (30 mg total) by mouth 1 (one) time each day. 11/11/19 23 Active inhalat.spacin g dev,large mask spacer To be used as needed with albuterol for SOB, cough, wheeze 04/16/19 19 Active methylPREDNISo lone (MEDROL) 4 mg tablet Take 6 tabs PO on day 1, 5 tabs PO on day 2, 4 tabs PO on day 3, 3 tabs PO on day 4, 2 tabs PO on day 5, and 1 tab PO on day 6. Active UNABLE TO FIND SPACER DEVICE-ADULT To be used as needed with albuterol for SOB, cough, wheeze, Active Breo Ellipta 200-25 mcg/dose inhaler INHALE ONE PUFF INTO THE LUNGS ONCE DAILY 180 each 3 04/18/19 25 Active Ventolin HFA 90 mcg/actuation inhaler INHALE TWO PUFFS INTO THE LUNGS EVERY 6 HOURS NEEDED FOR COUGH, WHEEZING, OR FOR SHORTNESS OF BREATH (OR CHEST TIGHTNESS) 18 g 5 04/18/19 25 Active ipratropium (ATROVENT) 0.02 % nebulizer solution INHALE 2.5ML VIA NEBULIZER FOUR TIMES A DAY NEEDED FOR WHEEZING (CHEST TIGHTNESS OR FOR SHORTNESS OF BREATH) 300 mL 1 04/26/19 25 Active montelukast (SINGULAIR) 10 mg tablet TAKE ONE TABLET BY MOUTH AT BEDTIME 90 tablet 1 04/26/19 25 Active montelukast (SINGULAIR) 10 mg tablet Take 1 tablet (10 mg total) by mouth at bedtime. 02/01/20 23 025 Discontinued ipratropium (ATROVENT) 0.02 % nebulizer solution INHALE 2.5MLM VIA NEBULIZER FOUR TIMES A DAY NEEDED FOR WHEEZING (CHEST TIGHTNESS OR FOR SHORTNESS OF BREATH) 300 mL 1 02/16/20 24 025 Discontinued Active Problems Problem Noted Date Diagnosed Date Excessive drinking alcohol 12/29/2023 Diarrhea 09/16/2019 Intertrigo 09/16/2019 History of nephrectomy 12/25/2018 Obstructive sleep apnea 09/21/2018 Overview (05/09/2023): [facility] Home Sleep Apnea Test: Date 09/17/2018; Wt 233#; BMI 40; MAGNOLIA 5, AI 0.1; HI 4.9; Unclassified apneas 0; Obstructive apneas 1; Central apneas 0; Mixed apneas 0; hypopneas 41; average oxygen saturation 92% (lowest 84% with saturations <88% for 5% or more of study) - Obstructive Sleep Apnea - mild; mostly hypopneas; with sleep related hypoventilation by 2019 home sleep apnea test. Nicotine dependence, uncomplicated 09/10/2018 Stage 2 moderate COPD by GOLD classification Family history of lung cancer 09/10/2018 PND (paroxysmal nocturnal dyspnea) 09/10/2018 Osteoarthritis of thoracic spine 05/30/2018 DDD (degenerative disc disease), thoracolumbar 0 05/30/2018 Right inguinal hernia 03/29/2018 CKD (chronic kidney disease) stage 3, GFR 30-59 ml/min 01/15/2018 Overview (05/09/2023): GFR mid-40s. After nephrectomy History of renal cell cancer 04/18/2017 Gallstones 03/30/2017 Gastroesophageal reflux disease without esophagi tis 03/30/2017 Helicobacter pylori infection 03/30/2017 Asthma 05/03/2012 Meralgia paresthetica 12/30/2010 Depression 03/18/2008 Encounters Date Type Department Care Team Description 05/10/2024 Telephone Adult Medicine [address] [phone] Edith Loving MD Rash from Last 3 Months Immunizations Name Administration Dates Next Due Influenza Quadravalent, MDCK , 0.5ml, preservative free (Flucelvax) 6mo and older 02/14/2022,12/17/2020,12/05/2019,12/06 Influenza trivalent, 0.5mL, preservative free (Fluarix; FluLaval; Fluzone) ages 6mo and older (Afluria) 3 years and older 01/01/2019,12/27/2016,11/27/2015,12/04,01/15/2014 Influenza trivalent, with pr eservative (Fluzone; Afluria) 6mo and older 01/25/2019,12/27/2016,10/24/2014,12/20 Pneumococcal polysaccharide 23 valent (Pneumovax 23) 2yo and older 12/29/2014 Tdap Tetanus diptheria acell ular pertussis (Boostrix; Adacel) 7yo and older 06/27/2011 Surgical History Surgery Date Site/Laterality Comments OTHER SURGICAL HISTORY 05/26/2017 Right PROCEDURE:NEPHRECTOMY RADICAL;COMMENT:Dr Clarke WISDOM TOOTH EXTRACTION PROCEDURE: HISTORICAL WISDOM TEETH EXTRACTION NEPHRECTOMY 05/26/2017 Right PROCEDURE: HISTORICAL NEPHRECTOMY; COMMENT: renal cell CA Medical History Medical History Date Comments Depression 03/18/2008 DX:Depression Asthma DX:Asthma; COMME NT: Allergy/cold-induced History of tobacco abuse DX:Hist ory of tobacco abuse Renal mass, right 04/18/2017 DX:Renal mass, right; COMMENT: s/p nephrectomy Right inguinal hernia 03/29/2018 DX:Right i nguinal hernia History of colonoscopy DX:Histor y of colonoscopy; COMMENT: never, declined 12/17/20, has stool kit at home Family History Medical History Relation Name Comments Cancer Father lung ca Lung cancer Father No Known Problems Maternal Grandfather Heart failure Maternal Grandmother No Known Problems Mother No Known Problems Paternal Grandfather No Known Problems Paternal Grandmother Ulcerative colitis Sister x3 health y sisters Other: disabled Son 1 meningitis a s baby No Known Problems Son 2 x 2 health y sons Breast cancer Neg Hx Colon cancer Neg Hx Ovarian cancer Neg Hx Relation Name Status Comments Father Maternal Grandfather Maternal Grandmother Mother Alive Paternal Grandfather Paternal Grandmother Sister Alive Son 1 Alive Son 2 Alive Social History Tobacco Use Types Packs/Day Years Used Date Smoking Tobacco: Every Day Cigarettes 1 42 Started: 03/20/1978; Last attempted to quit: 03/20/2020 Smokeless Tobacco: Never Quit: 03/22/2015 Tobacco Cessation:Ready to Q uit: Not Asked; Counseling Given: Not Answered Alcohol Use Standard Drinks/Week Comments Yes 0 (1 standard drink = 0.6 oz pur e alcohol) Comments Unknown Sex and Gender Information Value Date Recorded Sex Assigned at Not on file Legal Sex Female 6:17 AM EST Gender Identity Not on file Sexual Orientation Not on file Obstetrics History Last Filed Vital Signs Vital Sign Reading Time Taken Comments Blood Pressure 130/70 02/08/2024 3:48 PM EST Pulse 75 02/08/2024 3:48 PM EST Temperature 36.1 ??C (96.9 ??F) 02/08/2024 3:48 PM ES T Respiratory Rate 16 02/08/2024 3:48 PM EST Oxygen Saturation 95% 02/08/2024 3:48 PM EST Inhaled Oxygen Concentration - - Weight 112 kg (246 lb 3.2 oz) 02/08/2024 3:48 PM EST Height 162.6 cm (5' 4 ) 02/08/2024 3:48 PM EST Body Mass Index 42.26 02/08/2024 3:48 PM EST Plan of Treatment Upcoming Encounters Date Type Department Care Team (Late st Contact Info) Description 02/07/2025 11:30 AM EST Office Visit Pulmonolgy - [place] [address] [place] [id number] Janine Dorsey, RIOS [address] [place] [address] Health Maintenance Due Date Last Done Comments Hepatitis A Vaccines (1 of 2 - Risk 2-dose series) 1981 Zoster Vaccines (1 of 2) 1981 Pneumococcal Vaccine: 50+ Years (2 of 2 - PCV) 12/30/2015 12/29/2014 Pneumococcal Vaccine: Pediatrics (0 to 5 Years) and At-Risk Patients (6 to 64 Years) (2 of 2 - PCV) 12/30/2015 12/29/2014 Breast Cancer Screening 05/18/2020 05/18/2018, 05/16 COVID-19 Vaccine (3 - Moderna risk series) 09/21/2020 08/24/2020, 07/27/2020 DTaP,Tdap,and Td Vaccines (2 - Td or Tdap) 06/26/2021 06/27/2011 Colorectal Cancer Screening: FIT-DNA (Cologuard) 02/24/2022 Depression Screening 02/24/2022 HIV Screening 02/24/2022 Social Influencers of Health Screening 02/24/2022 RSV Immunization Patients 60+ Years Old (1 - Risk 60-74 years 1-dose series) 2022 Cervical Cancer Screening: HPV 06/05/2023 06/04/2018 Lung Cancer Screening (Low Dose CT) 01/28/2025 01/29/2024, 12/27/2022, 11/24/2021, Additional history exists Cholesterol Screening (Lipid Panel) 11/27/2028 11/28/2023, 11/28/2023 Hepatitis C Screening Completed 07/16/2013 Influenza Vaccine Completed 01/08/2024, , 12/17/2020, Additional history exists HIB Vaccines Aged Out No longer eligi ble based on patient's age to complete this topic HPV Vaccines Aged Out No longer eligi ble based on patient's age to complete this topic Hepatitis B Vaccines Aged Out No long er eligible based on patient's age to complete this topic IPV Vaccines Aged Out No longer eligi ble based on patient's age to complete this topic MMR Vaccines Aged Out No longer eligi ble based on patient's age to complete this topic Meningococcal ACWY Vaccine Aged Out N o longer eligible based on patient's age to complete this topic Meningococcal B Vacine Aged Out No lo nger eligible based on patient's age to complete this topic RSV Immunization Patients Under 20 months Aged Out No longer eligible based on patient's age to complete this topic Varicella Vaccines Aged Out No longer eligible based on patient's age to complete this topic Procedures Procedure Name Priority Date/Time Associated Diagnosis Comments CT LUNG SCREENING Routine 01/29/2024 11: 55 AM EST Cigarette smoker LIPID PANEL Routine 11/28/2023 HPV Routine 06/04/2018 SCR MAMMO BI INCL CAD Routine 05/18/2018 2:44 PM EST Encounter for screening mammogram for malignant neoplasm of breast HEPATITIS C SCREENING Routine 07/16/2013 from Last 3 Months or Most Recently Relevant to Health Maintenance Results * CT Lung Screening (01/29/2024 11:55 AM EST) Anatomical Region Laterality Modality Chest Computed Tomogra phy 01/30/2024 9:14 AM EST Impressions 01/30/2024 10:08 AM EST Impression: New 4 mm left upper lobe nodule, for which a follow-up low-dose CT is recommended in 6 months. Lung-RADS Category: ??Lung-RADS 3: ??Probably benign nodule(s). Recommend follow up with Low Dose Chest CT in 6 months. Recommendations: Follow-up low-dose noncontrast CT recommended in 6 months. -------- FINAL REPORT -------- Dictated By: Sury Sheikh Dictated Date: 01/30/2024 09:14 ET Assigned Physician: Sury Sheikh Reviewed and Electronically Signed By: Sury Sheikh Signed Date: 01/30/2024 10:08 ET Workstation ID: [id number] Transcribed By: Self Edit Transcribed Date: 01/30/2024 09:14 ET Narrative 01/30/2024 10:08 AM EST History: ??63 year-old 42 pack-year current smoker, asymptomatic, for lung cancer screening. Comparison: 12/27/22 Technique: Helical volumetric imaging of the thorax was performed, using low- dose technique, without IV contrast. DLP: 167.37 mGy/cm ??CTDIvol: 4.83 mGy AOL VCT Iterative reconstruction technique Findings: Lungs and Airways: The trachea and central bronchial tree remain patent. Bronchial wall thickening is seen bilaterally, worst in the right lower lobe where there is peripheral mucous plugging and thin bandlike opacities compatible with atelectasis. Centrilobular emphysema is again noted. A new 4 mm solid, noncalcified nodule is seen in the left upper lobe (image 83 series 3). Scattered sub-4 mm solid, noncalcified nodules are seen elsewhere in both lungs. There are rare homogeneously calcified nodules, consistent with old granulomatous disease. Pleura: No pleural or pericardial effusions are definitely verified. Base of neck, mediastinum and heart: The heart remains normal in size. Moderate coronary artery calcification is again seen. The thoracic aorta is normal in caliber. No developing thoracic lymphadenopathy is noted. Soft tissues: The overlying soft tissues are unremarkable. Abdomen: This study was performed without contrast and with lower than standard dose. These factors reduce the sensitivity for detection of small lesions in the upper abdomen. A hepatic cyst is again seen. A 2.8 x 1.9 cm right adrenal nodule has CT numbers consistent with an adenoma, unchanged. Mild nodularity of the left adrenal gland is also stable from previous. Diverticulosis of the partially imaged colon is noted. us Kenzie Serna MD [facility] CT PROCEDURES Final Result * (ABNORMAL) Lipid panel (11/28/2023) LDL/HDL Ratio 4 0 - 4 Triglycerides 166(A) 0 - 150 mg/dL Cholesterol 222(A) 0 - 200 mg/dL HDL 58 >=40 mg/dL LDL Cholesterol 131(A) 0 - 100 mg/dL Blood Venous blood specimen / Unknown us Historical Provider LAB BLOOD ORDERABLES Amber l Result * Cervical Cancer Screening: HPV (06/04/2018) Cervical Cancer Screening: HPV negative interpretation abstracted us Historical Provider HEALTH MAINTENANCE Final Result * SCR MAMMO BI INCL CAD (05/18/2018 2:44 PM EST) Anatomical Region Laterality Modality Radiographic Isha ging 05/16/2017 2:45 PM EST Narrative 05/20/2018 12:54 PM EST This is a summary report. The complete report is available in the patient's medical record. If you cannot access the medical record, please contact the sending organization for a detailed fax or copy. Full field digital screening mammography, reviewed with CAD and compared to previous. ??The breasts are composed of fatty and fibroglandular tissue. ??No suspicious mass, architectural distortion or suspicious calcifications are identified. IMPRESSION: : No mammographic evidence of malignancy. BIRADS 1-Negative; N. 5 year breast cancer risk assessment 0.8 % Lifetime breast cancer risk assessment 6.0 % Breast cancer risk category Low (<15%) Procedure Note Zuly Guajardo MD - 03/08/2022 This is a summary report. The complete report is available in thepatient's medical record. If you cannot access the medical record, pleasecontact the sending organization for a detailed fax or copy. Full field digital screening mammography, reviewed with CAD and comparedto previous. The breasts are composed of fatty and fibroglandular tissue.No suspicious mass, architectural distortion or suspicious calcificationsare identified. IMPRESSION: : No mammographic evidence of malignancy. BIRADS 1-Negative; N. 5 year breast cancer risk assessment 0.8 % Lifetime breast cancer risk assessment 6.0 % Breast cancer risk category Low (<15%) Taina Gomez MD IMG XR PROCEDURES Final Resu lt * Hepatitis C Screening (07/16/2013) Hepatitis C Screening abstracted Historical Provider HEALTH MAINTENANCE Final Result from Last 3 Months or Most Recently Relevant to Health Maintenance Insurance [facility] [employer] Care Teams Fatback Trimmer Relationship Specialty Start Date End Date Edith Loving MD [address] [place] [id number] PCP - General Internal Medicine 01/25/24
--- OUTSIDE RECORDS SUMMARY | 2024-05-19 22:41 | XMS_ITS | Encounter Summary ---
Author Organization [facility] Address [address] [place] [address] Care Team Providers Care Senior Data Warehouse Developer Name Role Phone Edith Loving MD Primary Care Prov ider Reason for Visit * Reason Onset Date Comments Rash 05/10/2024 Encounter Details Date Type Department Care Team (Late st Contact Info) Description 05/10/2024 Telephone Adult Medicine [address] [phone] Edith Loving MD [address] [place] [id number] Rash Social History Tobacco Use Types Packs/Day Years Used Date Smoking Tobacco: Every Day Cigarettes 1 42 Started: 03/20/1978; Last attempted to quit: 03/20/2020 Smokeless Tobacco: Never Quit: 03/22/2015 Alcohol Use Standard Drinks/Week Comments Yes 0 (1 standard drink = 0.6 oz pur e alcohol) Comments Unknown Sex and Gender Information Value Date Recorded Sex Assigned at Not on file Legal Sex Female 6:17 AM EST Gender Identity Not on file Sexual Orientation Not on file documented as of this encounter Progress Notes * Mirela Rizo RN - 05/10/2024 11:10 AM EST Spoke with the pt Rash is on arms R>L stomach and side Itchy, red, flat, widespread. If she touches it feels raised but does not look raised No one else in the home with rash. Does not look like bed bugs. Nothing on the scalp. Tried moisturizers. Has not tried hydrocortisone creams or benadryl, only has 1 kidney so is cautious about what she takes. No available appts advised C for eval. * Alejandro Barron - 05/10/2024 9:46 AM EST The patient is calling due to a severe rash and was wondering if someone can see her LEYDI. documented in this encounter Plan of Treatment Upcoming Encounters Date Type Department Care Team (Late st Contact Info) Description 02/07/2025 11:30 AM EST Office Visit Pulmonolgy - [place] [facility] [address] [place] [phone] Janine Dorsey NP [address] [place] [address] documented as of this encounter Visit Diagnoses Not on filedocumented in this encounter Care Teams Senior Data Warehouse Developer Relationship Specialty Start Date End Date Edith Loving MD [address] [place] [id number] PCP - General Internal Medicine 01/25/24 documented as of this encounter
--- NOTE | 2024-05-19 22:50 | PC.NURSE ---
pt a&ox4, respirations even and unlabored. pt reports being seen at urgent care for rash on body, reports she was on steroids which allowed it to go away but once she stopped taking the steroid the rash came back. pt noted to have rash on arms, legs and abdomen. reports rash is itchy and she has been scratching the areas. pt medicated per mar, tolerated well with water. provider aware of bp.
[2024-05-19 23:33] VITALS: BP 150/92; PULSE 87; RESP 18; TEMP 37; O2SAT 98
== END 2024-05-19 23:35 | disposition home or self-care (01) ==
PROVIDERS: Emergency Provider Emergency Medicine; PCP Internal Medicine
DX: L30.9 Dermatitis, unspecified (principal)
CPT/HCPCS: 99283; 99284

== ENCOUNTER 2024-10-05 22:26 | Emergency (ER) | payer OTHER, SELFPAY ==
[2024-10-05 22:33] VITALS: BP 85/39; BP 86/66; PULSE 71; PULSE 74; RESP 16; TEMP 36.7; O2SAT 91; BMI 43.9
--- NOTE | 2024-10-05 22:40 | ECG_ITS ---
Test Reason : DIZZINESS Blood Pressure : */* mmHG Vent. Rate : 68 BPM Atrial Rate : 68 BPM P-R Int : 164 ms QRS Dur : 68 ms QT Int : 418 ms P-R-T Axes : 33 18 72 degrees QTcB Int : 444 ms Normal sinus rhythm Nonspecific T wave abnormality Abnormal ECG When compared with ECG of 13-Dec-2022 20:02, Nonspecific T wave abnormality now evident in Lateral leads Referred By: Generic ED Physician Electronically Signed By: DL SINGH
[2024-10-05 22:52] LABS: MANUAL DIFF FLAG NO
[2024-10-05 22:53] LABS: Hematocrit 38.7 % (37.0-47.0); Hemoglobin 13.0 g/dl (12.0-16.0); Imm Gran Abs Auto 0.08 X10*3/uL (0.00-0.03); Imm Gran Pct Auto 0.6 % (0.0-0.4); Lymphocytes Absolute Auto 3.4 X10*3/uL (1.2-4.9); Mean Corpuscular HGB Conc 33.6 g/dl (31.0-35.0); Mean Corpuscular Hemoglobin 27.4 pg (27.0-33.0); Mean Corpuscular Volume 81.5 fL (80.0-98.0); NRBC Abs Auto 0.000 X10*3/uL (0.0-0.012); NRBC Pct Auto 0.0 /100WBC (0.0-0.2); Platelet Count 258 X10*3/uL (160-400); Red Blood Count 4.75 X10*6/uL (4.20-5.50); White Blood Count 14.5 X10*3/uL (4.8-10.8)
--- NOTE | 2024-10-05 22:53 | ED.GENADULT ---
HPI - General Adult General Chief complaint: Dizziness Stated complaint: dizzy, hypotension, new bp meds [id number] Time Seen by Provider: 10/05/24 22:53 History of Present Illness ED Provider: Marlee DORSEY narrative: The patient is a 63-year-old woman who has a history of hypertension. She says that this evening she felt fairly abruptly quite dizzy. She felt that her symptoms were worse when she walked around. She checked her blood pressure and her blood pressure was 80/40. She called an ambulance. She was hypotensive with the paramedics and was brought to the hospital. No significant headache, no significant chest pain, no significant pain with breathing. No abdominal pain. No nausea or vomiting. No pain or swelling in her legs. She was recently started on losartan. She says that she had an episode of dizziness yesterday evening as well. She has had no sense of a fever. No sweats or chills. The patient recently had blood work on September 03. At that blood work she was found to have a BUN of 14, a creatinine of 1.11 an eGFR of 57. Electrolytes were normal. It was after this blood work was done that she was started on losartan. She has been on the losartan for a couple of weeks. The patient has other regular daily medications are omeprazole and citalopram. She last had a bowel movement this morning. It was an unremarkable bowel movement. Brown in color. No history of black stools. The patient has a history of a right-sided nephrectomy. She had nephrectomy because of kidney cancer. This was a cancer that has been discovered incidentally when she had an ultrasound to evaluate her gallbladder. There has been no metastatic disease and she did not require additional cancer care after her right-sided nephrectomy. Related Data Previous Rx's ?Medication ?Instructions ?Recorded albuterol sulfate 2.5 mg/3 mL 2.5 mg (3 mL) inhalation QID PRN 06/10/22 (0.083 %) solution for nebulization shortness of breath or wheezing #90 mL albuterol sulfate 90 mcg/actuation 2 puff inhalation Q6H PRN 06/10/22 aerosol inhaler shortness of breath or wheezing #8.5 grams azithromycin 250 mg tablet See Rx Instructions PO .COMPLEX #6 06/10/22 (Zithromax Z-Charles) tabs prednisone 20 mg tablet 20 mg PO BID #10 tabs 06/10/22 lorazepam 1 mg tablet (Ativan) 1 mg PO BEDTIME PRN sleep #10 tabs 12/13/22 tramadol 50 mg tablet 50 mg PO Q6H PRN pain #20 tabs 12/13/22 hydroxyzine HCl 25 mg tablet 25 mg PO QID PRN itching #30 tabs 05/19/24 prednisone 10 mg tablet 10 mg PO DAILY #30 tabs 05/19/24 Allergies Allergy/AdvReac Type Severity Reaction Status Date / Time No Known Allergies (No Known Allergy Verified 10/05/24 22:35 Allergies*) Review of Systems Review of Systems: Yes all other systems are reviewed and are negative PMFSH Past Medical History Medical History Renal cell carcinoma Obstructive sleep apnea COPD (chronic obstructive pulmonary disease) Anxiety Surgical History History of nephrectomy Social History Social History Advance Directives: No Advance Directives Information Provided: Yes Physical Exam ED Vital Signs: Vital Signs - 24 hr 10/05/24 22:33 10/05/24 23:53 10/06/24 02:00 Temperature 98.1 F Pulse Rate 71 67 67 Respiratory Rate 16 18 18 Blood Pressure 85/39 L 120/48 L 144/62 H Pulse Oximetry 91 L 97 96 Oxygen Delivery Method Room Air Room Air Room Air BMI result Body Mass Index 43.9 Const Other: The patient is a somewhat chronically ill-appearing 63-year-old who was awake, alert, and quite pleasant. She looks mildly pale and slightly weak but not in acute distress. She does not seem short of breath or obviously uncomfortable. Orientation/consciousness: patient oriented x3 HENMT Other: The face is symmetrical. ?Mucous membranes moist. Eyes Other: Pupils are round equal, conjunctivae are clear, extraocular movements intact Neck Neck: Yes normal visual inspection, Yes full ROM, Yes no lymphadenopathy and Yes no JVD Resp Effort & Inspection: normal respiratory effort Auscultation: clear to auscultation bilaterally Cardio Rate: regular rate Rhythm: regular rhythm Heart sounds: S1 normal heart sound present and S2 normal heart sound present GI Other: The abdomen is soft and nontender Skin Other: The skin was pale and dry. She felt somewhat cool. Neuro General: patient oriented x3, tone normal, moves all extremities, no focal motor deficits and CN's II-XI intact bilaterally Extrem Other: Good pulses in the feet. No peripheral edema. No calf swelling or tenderness. No asymmetry. Medications Administered Discontinued Medications Generic Name Dose Route Start Last Admin Trade Name Cony PRN Reason Stop Dose Admin Sodium Chloride 1,000 mls @ 999 mls/hr 10/05/24 23:15 10/05/24 22:40 Ns IV 10/06/24 00:15 999 mls/hr .Q1H1M SEBLE Administration Lactated Ringer's 1,000 mls @ 999 mls/hr 10/05/24 23:30 10/06/24 01:11 Lr IV 10/06/24 00:30 999 mls/hr .Q1H1M SEBLE Administration Medical Decision Making Medical Decision Making [facility] Narrative: The patient is a very pleasant 63-year-old who arrived by ambulance with a complaint of dizziness. She had also checked her blood pressure at home and her blood pressure was low. She has recently started losartan as an antihypertensive medication. She has a history of a right-sided nephrectomy. The patient is presentation was significant for her hypotension but she otherwise did not have significant complaints. No fevers, sweats, chills. No significant headache. No chest pain. No shortness of breath. No abdominal pain, nausea, vomiting. No history of black stools or bloody stools. The patient was given IV fluids and labs and an EKG were done. EKG was unremarkable. Labs were significant for a creatinine of 1.54. The patient was able to show me on her phone the lab results from her primary care doctor's office 1 month when her creatinine was 1.11. Her BUN at that time was 14. Her electrolytes were normal. Her GFR was 57. Today the patient has creatinine was 1.54. Her GFR was 34. The patient was given IV fluids. She had rapid improvement of her blood pressure and complete resolution of her symptoms of dizziness. Side from her worsening renal function her workup in the emergency room was unremarkable. Her EKG was unremarkable. Other labs were unremarkable. Given the absence of any symptoms to suggest an acute infectious process in the absence of any symptoms to suggest an acute coronary syndrome or other vascular syndrome, in the absence of any symptoms to suggest a GI bleed I think this the patient has dizziness is most likely secondary to either dehydration or possibly some effect of the new antihypertensive medication losartan. Since the patient seemed to feel so much better after simple hydration I think she may be discharged. She will be advised to drink lot of fluids. She should hold the losartan for now. She should keep her appointment with her PCP on Monday. She should return to the emergency room if she feels worse Lab Data 10/05/24 22:46 10/05/24 22:46 Labs: Lab Results 10/05/24 10/05/24 10/06/24 Range/Units 22:46 23:43 00:58 WBC 14.5 H (4.8-10.8) X10*3/uL RBC 4.75 (4.20-5.50) X10*6/uL Hgb 13.0 (12.0-16.0) g/dl Hct 38.7 (37.0-47.0) % MCV 81.5 (80.0-98.0) fL MCH 27.4 (27.0-33.0) pg MCHC 33.6 (31.0-35.0) g/dl RDW 14.6 (11.0-16.0) % Plt Count 258 (160-400) X10*3/uL MPV 9.4 (9.4-12.3) fL Immature Gran % (Auto) 0.6 H (0.0-0.4) % Neut % (Auto) 66.6 (45-73) % Lymph % (Auto) 23.5 (20-40) % Hubbard % (Auto) 6.7 (2-11) % Eos % (Auto) 1.9 (0-4) % Baso % (Auto) 0.7 (0-2) % Lymph # (Auto) 3.4 (1.2-4.9) X10*3/uL Hubbard # (Auto) 1.0 (0.1-1.2) X10*3/uL Eos # (Auto) 0.3 (0.0-0.4) X10*3/uL Baso # (Auto) 0.1 (0.0-0.2) X10*3/uL Abs Immat Gran (auto) 0.08 H (0.00-0.03) X10*3/uL Absolute Neuts (auto) 9.7 H (2.0-8.3) x10*3/uL Absolute Nucleated RBC 0.000 (0.0-0.012) X10*3/uL Nucleated RBC % (auto) 0.0 (0.0-0.2) /100WBC Sodium 138 (135-145) mmol/L Potassium 4.1 (3.3-5.1) mmol/L Chloride 105 (96-108) mmol/L Carbon Dioxide 24 (22-29) mmol/L Anion Gap 13 (12-20) BUN 16 (9-16) mg/dL Creatinine 1.54 H (0.5-1.4) mg/dL Estim Creat Clear Calc 47.9 Estimated GFR 34 Random Glucose 154 H (60-115) mg/dL Calcium 8.5 D (8.4-10.2) mg/dL Total Bilirubin 0.4 (0.0-1.0) mg/dL AST 18 (5-31) U/L ALT 15 (0-31) U/L Alkaline Phosphatase 93 (39-117) U/L Troponin I High Sens < 2.7 (<3.5-17.0) ng/L C-Reactive Protein 6.43 H (< or = 0.50) mg/dL Total Protein 6.4 L (6.5-8.0) g/dL Albumin 3.9 (3.5-5.0) g/dL Urine Color Yellow Urine Appearance Clear Urine pH 5.5 (5.0-9.0) Ur Specific [place] 1.015 (1.005-1.025) Urine Protein Negative (Neg-Trace) mg/dL Urine Glucose (UA) Negative (Negative) mg/dL Urine Ketones Negative (Negative) mg/dL Urine Blood Negative (Negative) Urine Nitrite Negative (Negative) Ur Leukocyte Esterase Moderate (2+) H (Negative) Urine RBC 0-2 (0-2) /HPF Urine WBC 6-10 (0-5) /HPF Ur Squamous Epith Cells 0-2 (0-2) /HPF Urine Bacteria Trace (None Seen) Hyaline Casts 3-5 (0-2) /LPF Influenza Type A (PCR) NEGATIVE (Negative) Influenza Type B (PCR) NEGATIVE (Negative) RSV RNA Qual (PCR) NEGATIVE (Negative) SARS-CoV-2 RNA (RT-PCR) NEGATIVE (Negative) Independent Interpretation I performed an independent interpretation of an: EKG Interpretation: EKG at 05/09/2045 shows normal sinus rhythm at 68 beats per minute. No definite acute ischemic changes. Discharge Plan Discharge Clinical Impression: Dizziness, Hypotension, Acute kidney insufficiency Patient Disposition: Home, Self-Care Additional Instructions: I believe that you were feeling dizzy because your blood pressure was low. Your blood pressure was low either because you were dehydrated or as a result of your new antihypertensive medication, losartan. Your testing in the emergency room today shows that your creatinine was somewhat worse than it was last month. Your creatinine today was 1.54. Last month at your regular doctor's office it was 1.11. You has been given IV fluids and this seems to have helped your dizziness and also your blood pressure. At this point I think you are safe to go home. I would recommend that you do not take anymore of your losartan until you discuss this further with your regular doctor. Also please make sure you drink lot of fluids over the next several days. Please call your regular doctor on Monday morning to discuss this episode and follow up with your regular doctor this week. Prescriptions: No Action albuterol sulfate 90 mcg/actuation HFA aerosol inhaler 2 puff inhalation Q6H PRN (Reason: shortness of breath or wheezing) Qty: 8.5 0RF albuterol sulfate 2.5 mg /3 mL (0.083 %) solution for nebulization 2.5 mg inhalation QID PRN (Reason: shortness of breath or wheezing) Qty: 90 0RF prednisone 20 mg tablet 20 mg PO BID Qty: 10 0RF azithromycin [Zithromax Z-Charles] 250 mg tablet See Rx Instructions .ROUTE .COMPLEX Qty: 6 0RF Rx Instructions: For 250 mg dose pack: take 500 mg today (day 1), then 250 mg for 4 days (days 2-5) lorazepam [Ativan] 1 mg tablet 1 mg PO BEDTIME PRN (Reason: sleep) Qty: 10 0RF tramadol 50 mg tablet 50 mg PO Q6H PRN (Reason: pain) Qty: 20 0RF hydroxyzine HCl 25 mg tablet 25 mg PO QID PRN (Reason: itching) Qty: 30 0RF prednisone 10 mg tablet 10 mg PO DAILY Qty: 30 0RF Rx Instructions: 4 tabs daily x3 days 3 tabs daily x3 days 2 tabs daily x3 days 1 tabs daily x3 days Print Language: Italian
[2024-10-05 23:09] LABS: Alanine Aminotransferase 15 U/L (0-31); Albumin Level 3.9 g/dL (3.5-5.0); Alkaline Phosphatase 93 U/L (39-117); Anion Gap 13 (12-20); Aspartate Amino Transferase 18 U/L (5-31); Blood Urea Nitrogen 16 mg/dL (9-16); Calcium 8.5 mg/dL (8.4-10.2); Carbon Dioxide 24 mmol/L (22-29); Chloride 105 mmol/L (96-108); Creatinine Clr Calc Pharmacy 47.9; Estimated Glomerular Filt Rate 34; Potassium 4.1 mmol/L (3.3-5.1); Sodium 138 mmol/L (135-145); Total Protein 6.4 g/dL (6.5-8.0)
[2024-10-05 23:17] LABS: Troponin-I High Sensitivity < 2.7 ng/L (<3.5-17.0)
[2024-10-05 23:53] VITALS: BP 120/48; PULSE 67; RESP 18; O2SAT 97
[2024-10-06 00:42] LABS: Resp Syncy Virus RNA Qual PCR NEGATIVE (Negative); SARS COV2 PCR INHOUSE NEGATIVE (Negative)
[2024-10-06 01:05] LABS: Appearance Urine Clear; Glucose Urine UA Negative (Negative); PH 5.5 (5.0-9.0); Specific Gravity - Urine 1.015 (1.005-1.025); UMIC TRIGGER UACC YES
[2024-10-06] MEDS: Lactated Ringers 1,000 ML 999 ML IV (01:11)
[2024-10-06 01:17] LABS: UACC Culture Trigger YES
[2024-10-06 02:00] VITALS: BP 144/62; PULSE 67; RESP 18; O2SAT 96
--- NOTE | 2024-10-06 02:32 | PC.NURSE ---
Sudhakar RN (Nina) who completed the triage found the patient to be hypotensive and pale but otherwise stable and mentating appropriately. IV line established (#18 to left AC) and a 1L NS bolus given with use of a pressure bag. MD Booker made aware and went to bedside immediately for assessment.
[2024-10-06 02:39] VITALS: BP 144/62; PULSE 67; RESP 18; TEMP 36.8; O2SAT 96
== END 2024-10-06 02:15 | disposition home or self-care (01) ==
PROVIDERS: Emergency Provider Emergency Medicine
DX: R42 Dizziness and giddiness (principal); I95.9 Hypotension, unspecified; N28.9 Disorder of kidney and ureter, unspecified; Z03.818 Encounter for observation for suspected exposure to other biological agents ruled out
CPT/HCPCS: 36415; 80053; 81001; 84484; 85025; 86140; 87086; 87637; 93005; 96360; 96361; 99284; 99285; J7120

== ENCOUNTER → 2024-10-05 22:40 | Outpatient (BNV) | payer OTHER, SELFPAY | PROVIDERS: Emergency Provider Emergency Medicine; Visit Provider Internal Medicine | DX: R94.31 Abnormal electrocardiogram [ECG] [EKG] (principal); R42 Dizziness and giddiness | CPT/HCPCS: 93010 ==